=== PATIENT | male | born 1950 | race Caucasian/White ===

== ENCOUNTER 2019-04-19 06:35 | Day surgery (SDC) | payer MEDICARE ==
[~2019-04-19] VITALS: Ht 167.6 cm; Wt 92.0 kg
[~2019-04-19 06:35] MED LIST: ASPI325EC PO; ASPI81CH; ASPI81EC PO; BUPR100ER; BUPR150ER PO; CIPR500 PO; CLIN150 PO; CYCL10; ESOM20; IBUP200; IBUP600 PO; IBUP800 PO; ISOMON30 PO; METO50ER PO; OMEP40CA12 PO; OXYACE5T PO; PRAV10 PO; RANI150 PO; ROSU10TA PO
--- NOTE | 2019-04-19 07:18 | NUR ---
History, Chart, Medications and Allergies reviewed before start of procedure. Patient States Post-Procedure ride home has been arranged.
--- NOTE | 2019-04-19 07:59 | NUR ---
04/19/19 0759 Gian Ramos PATIENT DETERMINED TO BE ASA APPROPRIATE FOR PROPOFOL SEDATION PRIOR TO START OF PROCEDURE BY . 3-LEAD EKG REVIEWED WITH PHYSICIAN PRIOR TO START OF PROCEDURE.PATIENT CONFIRMS NPO STATUS AND AGREES WITH SCHEDULED PROCEDURE.History, Chart, Medications and Allergies reviewed before start of procedure.MONITOR INTACT WITH CONTINUOUS PULSE OXIMETRY AND INTERMITTENT BP.O2 VIA N/C INTACT THROUGHOUT SEDATION/PROCEDURE.HURRICAINE SPRAY TO OROPHARYX.Bite Block Placed
--- NOTE | 2019-04-19 08:31 | NUR ---
RECIEVED PATIENT AND REPORT FROM TRI MILLARD. PATIENT AWAKE TALKING TALKING TO PATIENT
== END 2019-04-19 23:23 | disposition home or self-care (01) ==
LOC: ORSCMMR 06:35 → ORD 08:00 → ORSCMMR 08:00
PROVIDERS: Internal Medicine Gastroenterology
PROC: 0D758ZZ Dilation of Esophagus, Via Natural or Artificial Opening Endoscopic (ICD-10-PCS; principal; 2019-04-19 08:00)
PROC: 0DB68ZX Excision of Stomach, Via Natural or Artificial Opening Endoscopic, Diagnostic (ICD-10-PCS; principal; 2019-04-19 08:00)
PROC: 0DB48ZX Excision of Esophagogastric Junction, Via Natural or Artificial Opening Endoscopic, Diagnostic (ICD-10-PCS; principal; 2019-04-19 08:00)
DX: R13.14 Dysphagia, pharyngoesophageal phase (principal); K21.9 Gastro-esophageal reflux disease without esophagitis; K29.70 Gastritis, unspecified, without bleeding; K31.7 Polyp of stomach and duodenum; E78.00 Pure hypercholesterolemia, unspecified; I25.2 Old myocardial infarction; Z79.899 Other long term (current) drug therapy; Z79.82 Long term (current) use of aspirin
CPT/HCPCS: 88305; 88342; C1726; J2704; J7120

== ENCOUNTER 2019-06-13 19:01 | Observation (INO) | payer OTHER ==
[~2019-06-13] VITALS: Ht 167.6 cm; Wt 92.5 kg
[~2019-06-13 19:01] MED LIST changes: -ISOMON30 PO; +Isosorbide Mono30 MG PO; -METO50ER PO; -OMEP40CA12 PO; +OMEPRAZOLE20 MG PO; +TOPROL XL25 MG PO
[2019-06-13 19:37] LABS: BASOPHILS ABSOLUTE AUTO 0.04 K/mm3 (0.00-0.23); BASOPHILS PERCENT AUTO 1 % (0-2); EOSINOPHILS ABSOLUTE AUTO 0.15 K/mm3 (0.00-0.68); EOSINOPHILS PERCENT AUTO 2 % (0-6); Hematocrit 46.1 % (37.0-53.0); Hemoglobin 15.6 g/dL (13.5-17.5); IMMATURE GRAN ABSOLUTE AUTO 0.05 K/mm3 (0.00-0.10); IMMATURE GRAN PERCENT AUTO 1 % (0-1); LYMPHOCYTES ABSOLUTE AUTO 2.08 K/mm3 (0.84-5.20); LYMPHOCYTES PERCENT AUTO 29 % (21-46); MONOCYTES ABSOLUTE AUTO 0.96 K/mm3 (0.16-1.47); MONOCYTES PERCENT AUTO 14 % (4-13); Mean Corpuscular HGB 31.6 pg (26.0-34.0); Mean Corpuscular HGB Conc 33.8 g/dL (31.5-36.5); Mean Corpuscular Volume 94 fL (80-100); Mean Platelet Volume 9.9 fL (9.1-12.4); NEUTROPHILS ABSOLUTE AUTO 3.82 K/mm3 (1.96-9.15); NEUTROPHILS PERCENT AUTO 54 % (41-73); Platelet Count 147 K/mm3 (150-400); RDW Coefficient Variation 12.2 % (11.7-14.2); RDW Standard Deviation 42.3 fL (35.1-46.3); Red Blood Cell Count 4.93 M/mm3 (4.30-5.90)
[2019-06-13 19:53] LABS: Alanine Aminotransfer (ALT/SGP 33 U/L (12-78); Albumin, Blood 3.7 g/dL (3.4-5.0); Albumin/Globulin Ratio 1.1 (0.8-1.8); Alk Phos 68 U/L (50-136); Anion Gap 6 mmol/L (6-16); Aspartate Aminotrans (AST/SGOT 19 U/L (12-37); Bilirubin, Total 1.7 mg/dL (0.1-1.0); Blood Urea Nitrogen 28 mg/dL (8-24); Bun/Creatinine Ratio 26.9 (12.0-20.0); CO2, Blood 24 mmol/L (21-32); Calcium, Blood 8.3 mg/dL (8.5-10.1); Chloride, Blood 112 mmol/L (98-108); Creatinine, Blood 1.04 mg/dL (0.60-1.20); Globulin, Blood 3.5 g/dL (2.2-4.0); Glomerular Filtration Rate >60 (60-); Glucose, Blood 109 mg/dL (70-99); Potassium, Blood 3.7 mmol/L (3.5-5.5); Sodium, Blood 142 mmol/L (136-145); Total Protein, Blood 7.2 g/dL (6.4-8.2); Troponin I <0.015 ng/mL (0.000-0.040)
[2019-06-13] MEDS ORDERED: TAMS.4ER PO (20:54)
[2019-06-13] MEDS ORDERED: MEGARED PO (20:55)
[2019-06-14 03:45] LABS: Anion Gap 5 mmol/L (6-16); Blood Urea Nitrogen 25 mg/dL (8-24); Bun/Creatinine Ratio 27.1 (12.0-20.0); CO2, Blood 25 mmol/L (21-32); Calcium, Blood 8.1 mg/dL (8.5-10.1); Chloride, Blood 113 mmol/L (98-108); Creatinine, Blood 0.92 mg/dL (0.60-1.20); Glomerular Filtration Rate >60 (60-); Glucose, Blood 111 mg/dL (70-99); Potassium, Blood 3.7 mmol/L (3.5-5.5); Sodium, Blood 143 mmol/L (136-145); Troponin I 0.028 ng/mL (0.000-0.040)
--- NOTE | 2019-06-14 05:56 | NUR ---
SHIFT SUMMARY: VSS, AFEB. A/0X4. UP AMB IND IN ROOM. NO REPORTS OF CHEST PAIN OR PRESSURE TONIGHT. STATES HE IS HAVING DIARRHEA- 2 EPISODES SO FAR TONIGHT. HE HAD LOOSE STOOLS FOR A COUPLE DAYS EARLIER IN THE WEEK WELL FOR WHICH HE TOOK IMODIUM AT HOME. SLEEPING AT THIS TIME. BED LOW, CALL BUTTON EXPLAINED AND PLACED IN REACH.
--- NOTE | 2019-06-14 10:12 | NUR ---
ECHOCARDIOGRAM COMPLETED
--- NOTE | 2019-06-14 16:57 | NUR ---
Shift Summary A/Ox4. Pleasant and cooperative. Calls appropriately for needs. Denies chest pain/tightness and SOB. Up in room independently. Tele SR 70. No acute concerns at this time.
--- NOTE | 2019-06-14 18:11 | NUR ---
Discharge Summary Pt discharge to home, instructions reviewed with patient and at the bedside. Education provided. Pt had no questions at this time. Escorted by RN with w/c, transported home via personal vehicle. No new meds.
== END 2019-06-14 18:10 | disposition home or self-care (01) ==
LOC: ER 19:01 → MEDS 19:02
PROVIDERS: Emergency Medicine; Nurse Practitioner Acute Care; ADMIT Internal Medicine
DX: I48.0 Paroxysmal atrial fibrillation (principal); I25.10 Atherosclerotic heart disease of native coronary artery without angina pectoris; I25.2 Old myocardial infarction; E78.5 Hyperlipidemia, unspecified; F32.9 Major depressive disorder, single episode, unspecified; K21.9 Gastro-esophageal reflux disease without esophagitis; G25.81 Restless legs syndrome; I48.92 Unspecified atrial flutter; G47.33 Obstructive sleep apnea (adult) (pediatric); J44.9 Chronic obstructive pulmonary disease, unspecified; Z95.5 Presence of coronary angioplasty implant and graft; Z90.49 Acquired absence of other specified parts of digestive tract; Z87.891 Personal history of nicotine dependence; Z88.0 Allergy status to penicillin; Z79.82 Long term (current) use of aspirin; Z79.899 Other long term (current) drug therapy; Z99.89 Dependence on other enabling machines and devices
CPT/HCPCS: 36415; 71045; 80048; 80053; 84443; 84484; 85025; 93005; 93010; 93306; 99285-25; G0378

== ENCOUNTER 2020-12-31 08:45 | Emergency (ER) | payer OTHER ==
[~2020-12-31] VITALS: Ht 167.6 cm; Wt 93.4 kg
[~2020-12-31 08:45] MED LIST changes: +MEGARED PO; +TAMS.4ER PO
[2021-01-01] MEDS ORDERED: ELIQUIS5 M3 PO (21:37)
== END 2020-12-31 11:23 | disposition home or self-care (01) ==
LOC: ER 08:45
DX: S51.811A Laceration without foreign body of right forearm, initial encounter (principal); I25.10 Atherosclerotic heart disease of native coronary artery without angina pectoris; K21.9 Gastro-esophageal reflux disease without esophagitis; Z88.0 Allergy status to penicillin; Z79.82 Long term (current) use of aspirin; Z79.899 Other long term (current) drug therapy; W45.8XXA Other foreign body or object entering through skin, initial encounter
CPT/HCPCS: 12032; 90471; 90714; 99283-25

== ENCOUNTER 2021-01-01 20:49 | Emergency (ER) | payer OTHER ==
[~2021-01-01] VITALS: Ht 167.6 cm; Wt 92.1 kg
[2021-01-01] MEDS ORDERED: ELIQUIS5 M3 PO (21:37)
== END 2021-01-01 21:39 | disposition home or self-care (01) ==
LOC: ER 20:49
DX: S51.811D Laceration without foreign body of right forearm, subsequent encounter (principal); X58.XXXD Exposure to other specified factors, subsequent encounter; Z88.0 Allergy status to penicillin; Z79.899 Other long term (current) drug therapy
CPT/HCPCS: 99282